=== PATIENT | male | born 1975 | race Hispanic/Latino ===

== ENCOUNTER 2017-06-19 19:23 | Observation (INO) | payer SELFPAY ==
[~2017-06-19] VITALS: Ht 167.6 cm; Wt 99.0 kg
[2017-06-19 19:40] LABS: BASOPHILS % (AUTO) 0.7 % (0.0-5.0); EOSINOPHILS % (AUTO) 2.7 % (0.0-8.0); HEMATOCRIT 39.6 % (42-54); LYMPHOCYTES % (AUTO) 41.4 % (21.0-51.0); MEAN CORPUSCULAR HEMOGLOBIN 29.7 pg (27.0-33.0); MEAN CORPUSCULAR HGB CONC 33.9 g/dL (32.0-36.0); MEAN CORPUSCULAR VOLUME 87.7 fL (79-99); MONOCYTES % (AUTO) 8.4 % (3.0-13.0); NEUTROPHILS % (AUTO) 46.8 % (40.0-77.0); PLATELET COUNT (AUTO) 250 K/uL (130-400); RED BLOOD CELL COUNT(AUTO) 4.51 MIL/uL (4.50-6.20); RED CELL DISTRIBUTION WIDTH 13.6 % (11.0-15.5)
[2017-06-19 19:54] LABS: INR 0.98 (0.85-1.15); PARTIAL THROMBOPLASTIN TIME 23.4 SEC (26.3-35.5); PROTHROMBIN TIME 10.3 SEC (9.6-11.6)
[2017-06-19 19:57] LABS: POTASSIUM 4.1 mmol/L (3.5-5.1)
[2017-06-19 20:21] LABS: ALBUMIN 3.5 g/dL (3.5-5.0); BILIRUBIN,TOTAL 0.3 mg/dL (0.2-1.0); CREATINE KINASE MB 2.7 ng/mL (0.5-3.6); TOTAL PROTEIN, SERUM 6.7 g/dL (6.0-8.3)
[2017-06-19] MEDS ORDERED: NITROGLYCERIN 1GM/1 INCH PACKET TD ONE (20:41)
[2017-06-19 23:09] LABS: AMPHET/METH SCREEN,URINE NEGATIVE (NEGATIVE); BARBITURATE SCREEN, URINE NEGATIVE (NEGATIVE); BENZODIAZEPINES SCREEN,URINE NEGATIVE (NEGATIVE); CANNABINOID SCREEN,URINE NEGATIVE (NEGATIVE); COCAINE SCREEN,URINE POSITIVE (NEGATIVE); OPIATE SCREEN,URINE POSITIVE (NEGATIVE); PHENCYCLIDINE SCREEN,URINE NEGATIVE (NEGATIVE)
[2017-06-20] MEDS ORDERED: ACETAMINOPHEN 325 MG TAB PO PRN (03:15)
[2017-06-20] MEDS ORDERED: ONDANSETRON HCL 4 MG/2 ML VIAL IV PRN (03:15)
[2017-06-20] MEDS ORDERED: HYDRALAZINE HCL 20 MG/ML VIAL IV PRN (03:15)
[2017-06-20] MEDS ORDERED: NITROGLYCERIN 0.4 MG SL TAB SL PRN (03:30)
[2017-06-20 04:10] VITALS: BP 114/77
[2017-06-20 04:39] LABS: CREATINE KINASE MB 2.2 ng/mL (0.5-3.6); CREATINE KINASE, TOTAL 182 U/L (21-232); MYOGLOBIN 34 ng/mL (10-92); TROPONIN I < 0.04 ng/mL (0.00-0.06)
[2017-06-20 07:37] VITALS: BP 134/92
[2017-06-20] MEDS ORDERED: METOPROLOL TARTRATE 25 MG TAB PO SCH (09:00)
[2017-06-20] MEDS ORDERED: ASPIRIN 325 MG TABLET PO SCH (09:00)
[2017-06-20] MEDS ORDERED: FAMOTIDINE 20MG TAB 20 MG TAB PO SCH (09:00)
[2017-06-20] MEDS ORDERED: ENOXAPARIN SODIUM 40 MG/0.4 ML SYRINGE SQ SCH (09:00)
[2017-06-20 10:48] LABS: CHOLESTEROL 135 mg/dL (<200); HDL CHOLESTEROL 44 mg/dL (29-71); LDL DIRECT 75 mg/dL (0-99); TRIGLYCERIDES 132 mg/dL (30-200)
[2017-06-20 11:11] VITALS: BP 126/85
[2017-06-20 16:00] VITALS: BP 140/52
== END 2017-06-20 19:41 | disposition home or self-care (01) ==
LOC: EDH 19:23 → EEVIPCON 19:24 → EDHIP 19:24 → 2DH 06-20 04:09
PROVIDERS: ADMIT Family Medicine; ATTEND Family Medicine
DX: R07.89 Other chest pain (principal); I10 Essential (primary) hypertension; Z82.49 Family history of ischemic heart disease and other diseases of the circulatory system; F17.210 Nicotine dependence, cigarettes, uncomplicated; F14.10 Cocaine abuse, uncomplicated
CPT/HCPCS: 36415 ×2; 71045; 80053; 80061; 80305; 82550 ×2; 82553 ×2; 83036; 83874 ×2; 84484 ×3; 85025; 85610; 85730; 93005 ×3; 93015; 96372; 99285; G0378 ×24; J1650

== ENCOUNTER 2018-11-13 05:20 | Emergency (ER) | payer MEDICAID | END 2018-11-13 06:05 | disposition home or self-care (01) | LOC: EDH 05:20 | DX: L03.116 Cellulitis of left lower limb (principal); I10 Essential (primary) hypertension; E11.9 Type 2 diabetes mellitus without complications; F98.8 Other specified behavioral and emotional disorders with onset usually occurring in childhood and adolescence; Z72.0 Tobacco use | CPT/HCPCS: 93005 ==

== ENCOUNTER 2019-09-30 17:53 | Emergency (ER) | payer MEDICAID ==
[2019-09-30] MEDS ORDERED: ONDANSETRON HCL 4 MG/2 ML VIAL ONE (18:42)
[2019-09-30] MEDS ORDERED: MORPHINE SULFATE 4 MG/1ML SYG ONE (18:43)
[2019-09-30] MEDS ORDERED: LIDOCAINE 5% TOPICAL PATCH TP ONE (18:43)
== END 2019-09-30 21:00 | disposition home or self-care (01) ==
LOC: EDH 17:53
DX: R10.10 Upper abdominal pain, unspecified (principal); E11.9 Type 2 diabetes mellitus without complications; I10 Essential (primary) hypertension; Z72.0 Tobacco use
CPT/HCPCS: 36415; 71046; 74176; 80053; 81001; 85025; 96374; 96375; 99285; J2270; J2405

== ENCOUNTER 2024-10-24 19:47 | Emergency (ER) | payer MEDICAID ==
[~2024-10-24] VITALS: Ht 172.7 cm; Wt 86.2 kg
--- NOTE | 2024-10-24 20:04 | NUR ---
PATIENT RESTLESS, PRESSURED SPEECH, ARMS AND LEGS WITH CONSTANT INVOLUNTARY MOVEMENTS. STATES HX OF SEVERE ANXIETY, PTSD.
[2024-10-24 20:30] LABS: BASOPHILS # (AUTO) 0.03 K/uL (0.00-0.20); BASOPHILS % (AUTO) 0.2 % (0.0-5.0); EOSINOPHILS # (AUTO) 0.11 K/uL (0.00-0.70); EOSINOPHILS % (AUTO) 0.9 % (0.0-8.0); HEMATOCRIT 34.9 % (42-54); IMMATURE GRANULOCYTE ABSOLUTE 0.06 K/uL (0-1); LYMPHOCYTES # (AUTO) 1.8 K/uL (1.0-4.8); LYMPHOCYTES % (AUTO) 14.9 % (21.0-51.0); MEAN CORPUSCULAR HEMOGLOBIN 29.9 pg (27.0-33.0); MEAN CORPUSCULAR VOLUME 90.6 fL (79-99); MONOCYTES # (AUTO) 1.3 K/uL (0.1-1.0); MONOCYTES % (AUTO) 10.4 % (3.0-13.0); NEUTROPHILS # (AUTO) 9.1 K/uL (1.8-7.7); NEUTROPHILS % (AUTO) 73.1 % (40.0-77.0); PLATELET COUNT (AUTO) 216 K/uL (130-400); RED BLOOD CELL COUNT(AUTO) 3.85 MIL/uL (4.50-6.20); WHITE BLOOD COUNT (AUTO) 12.4 K/uL (4.8-10.8)
[2024-10-24 20:39] LABS: POTASSIUM 3.8 mmol/L (3.5-5.1)
--- NOTE | 2024-10-24 21:00 | NUR ---
PATIENT GIVEN URINAL FOR URINE SAMPLE, PATIENT STATES WILL PROVIDE SOON POSSIBLE.
[2024-10-24] MEDS: LIDOCAINE HCL 1% 20 ML VIAL INJ ONE (21:48)
[2024-10-24] MEDS ORDERED: IBUP-2070 PO (21:48)
[2024-10-24] MEDS ORDERED: CLIN-141 PO (21:48)
--- NOTE | 2024-10-24 21:50 | ERN ---
ED Note History of Present Illness Stated Complaint: INSECT BITE Chief Complaint: Insect Bite Time Seen by MD: 19:51 Time Seen by Midlevel: 19:51 Dictation: The Please a 49-year-old male with a history of diabetes, anxiety, PTSD, depression who presents to the emergency department with complaints of right upper thigh abscess onset three days ago. Patient is not aware if something bit him. Reports fevers. Allergies: Coded Allergies: No Known Drug Allergies (Unverified Allergy, Unknown, 06/20/17) Home Meds Active Scripts Ibuprofen (Ibuprofen) 600 Mg Tablet, 600 MG PO Q6H PRN for PAIN, #15 TAB Prov:SARAH DUBOIS COST REPORT CLERK 10/24/24 Clindamycin HCl (Clindamycin HCl) 300 Mg Capsule, 1 CAP PO QID for 10 Days, #40 CAP 0 Refills Prov:SARAH DUBOIS COST REPORT CLERK 10/24/24 Past Medical History Past Medical History: Anxiety, Bipolar, Depression, Other Additional Past Medical Hx: PTSD Surgical History: None RN Note Reviewed/Agreed w/PFSH: Yes Review of System Dictation Constitutional: Negative for fever,chills, and weight loss Eyes: Negative for injury, pain,redness, and discharge ENT: Negative for injury,pain or swelling Cardiovascular: Negative for chest pain, palpitations, and edema Respiratory: Negative for shortness of breath, cough, and wheezing, Abdomen/GI: Negative for abdominal pain, nausea, vomiting, diarrhea, and consti pation Back: Negative for injury and pain : Negative for injury, bleeding and discharge MS/Extremity: Negative for injury and deformity Skin: Negative for rash, and discoloration positive for abscess Neuro: Negative for headache, weakness, numbness, tingling, and seizure Psych: Negative for suicide ideation, homicidal ideation, and hallucinations Initial Vital Sign VS Vital Signs Date Time Temp Pulse Resp B/P (MAP) Pulse Ox O2 Delivery O2 Flow Rate FiO2 10/24/24 19:48 98.6 101 20 133/59 98 Room Air 10/24/24 21:58 0 21 Physical Exam Dictation Vital Signs reviewed General Appearance: Alert, oriented x 3, no acute distress, well developed, nourished. Head and Face: non-traumatic. Eyes: PERRL, pink conjunctivas, eyelid no trauma, anterior chamber with arcus senilis. Ears: Pinnas intact and no signs of trauma or erythema ear canals clear and no discharge TM no erythema Nose: No discharge, no bleeding. Oropharynx: Mouth normal, tongue pink. pharynx clear,no erythema, tonsils no exudates, no abscesses noted, mucous membrane moist Neck: Supple, non-tender, no thyromegaly, no masses, no JVD, no bruits Breast:Deferred Chest:No tenderness, no crepitus, no paradoxical movement, no retractions Lungs:Clear, well-ventilated, symmetric, no rales, no wheezing, no rhonchi, no stridor, good breath sounds bilaterally Heart: Regular rate, regular rhythm, no murmur, no gallops Vascular: no peripheral edema, Abdomen: Soft, positive bowel sounds, nondistended, no guarding, nontender, no rebound, no masses no hepatomegaly, no splenomegaly, no Hodge's sign, no hernias. Rectal: Deferred Genital: Deferred Neurological: Normal speech, motor function intact, sensory function intact Musculoskeletal: Neck nontender, full range of motion, back nontender, full range of motion, Extremities: nontender, full range of motion Skin: Color pink, dry, no turgor, no rash, no lacerations, no abrasions, no contusions. Abscess noted to right posterior thigh, erythema, mild purulent drainage Lymphatic: Deferred Results (Laboratory/Radiology) Laboratory/Radiology Laboratory Tests Test 10/24/24 20:25 White Blood Count 12.4 K/uL (4.8-10.8) H Red Blood Count 3.85 MIL/uL (4.50-6.20) L Hemoglobin 11.5 g/dL (14.0-18.0) L Hematocrit 34.9 % (42-54) L Mean Corpuscular Volume 90.6 fL (79-99) Mean Corpuscular Hemoglobin 29.9 pg (27.0-33.0) Mean Corpuscular Hemoglobin Concent 33.0 g/dL (32.0-36.0) Red Cell Distribution Width 13.0 % (11.0-15.5) Platelet Count 216 K/uL (130-400) Mean Platelet Volume 10.4 fL (7.5-10.5) Immature Granulocyte % (Auto) 0.5 % (0-1) Neutrophils (%) (Auto) 73.1 % (40.0-77.0) Lymphocytes (%) (Auto) 14.9 % (21.0-51.0) L Monocytes (%) (Auto) 10.4 % (3.0-13.0) Eosinophils (%) (Auto) 0.9 % (0.0-8.0) Basophils (%) (Auto) 0.2 % (0.0-5.0) Neutrophils # (Auto) 9.1 K/uL (1.8-7.7) H Lymphocytes # (Auto) 1.8 K/uL (1.0-4.8) Monocytes # (Auto) 1.3 K/uL (0.1-1.0) H Eosinophils # (Auto) 0.11 K/uL (0.00-0.70) Basophils # (Auto) 0.03 K/uL (0.00-0.20) Absolute Immature Granulocyte (auto 0.06 K/uL (0-1) Nucleated Red Blood Cells 0.0 % (0.0-0.19) Sodium Level 139 mmol/L (136-145) Potassium Level 3.8 mmol/L (3.5-5.1) Chloride Level 102 mmol/L (101-111) Carbon Dioxide Level 31 mmol/L (21-32) Blood Urea Nitrogen 16 mg/dL (7-18) Creatinine 1.0 mg/dL (0.5-1.3) Glomerular Filtration Rate Calc 93 mL/min (>90) Random Glucose 142 mg/dL (70-105) H Total Calcium 8.3 mg/dL (8.5-10.1) L Labs Reviewed?: Yes ED Course ED Course Orders Procedure Category Date Status Time Cbc With Differential LAB 10/24/24 Complete 20:05 Basic Metabolic Panel LAB 10/24/24 Complete 20:05 Us Soft Tissue Lower US 10/24/24 Taken Extremity 20:05 Drug Screen Urine LAB 10/24/24 Logged 20:31 Lidocaine Hcl 1% 20ml PHA 10/24/24 Complete Vial (Lidocaine Hc 21:30 Clindamycin 150mg Cap PHA 10/24/24 Complete (Cleocin 150mg Cap 21:30 Acetaminophen 500mg PHA 10/24/24 Complete Tab (Tylenol 500mg T 21:30 I&D Set Up Bedside CPOE 10/24/24 Transmitted (Er) 21:09 Current Medications Medications (Trade) Dose Ordered Sig/Ernst Route PRN Reason Start Time Stop Time Status Last Admin Dose Admin Acetaminophen (TYLenol 500MG TAB) 1,000 mg ONCE ONCE PO 10/24/24 21:30 10/24/24 21:31 DC 10/24/24 21:56 Clindamycin HCl (Cleocin 150mg Cap) 300 mg ONCE ONCE PO 10/24/24 21:30 10/24/24 21:31 DC 10/24/24 21:56 Lidocaine HCl (Lidocaine HCl 1% 20ml Vial) 10 ml ONCE ONCE INJ 10/24/24 21:30 10/24/24 21:31 DC Vital Signs Date Time Temp Pulse Resp B/P (MAP) Pulse Ox O2 Delivery O2 Flow Rate FiO2 10/24/24 21:58 98.4 90 18 135/79 98 Room Air* 0 21 10/24/24 19:48 98.6 101 20 133/59 98 Room Air Medical Decision Making MDM The Please a 49-year-old male with a history of diabetes, anxiety, PTSD, depression who presents to the emergency department with complaints of right upper thigh abscess onset three days ago. Patient is not aware if something bit him. Reports fevers. CBC showed mild leukocytosis, mild anemia, chemistry showed no electrolyte imbalance, glucose of 142. Ultrasound revealed a right posterior abscess of 2.4 x 0.6 x 1.47 which was drained. Patient tolerated procedure well. Patient appears anxious but answers questions correctly, is oriented. Verbalized understanding instructions. Patient instructed to return in 48 hours to have packing removed. Patient will be treated with clindamycin as outpatient. Differential diagnosis: Abscess, cellulitis, sepsis Need for hospitalization: Patient does not meet criteria for hospitalization. There are no social concerns with this patient. Procedure Blade Size: 11 I & D Procedure: no betadine prepno sterile drapes appliedno sterile dressing appliedno gauze wick placed Progress Verbal consent for the procedure was obtained. A takeout protocol was performed prior to initiating the procedure. The area was prepared and draped in the usual, sterile manner. The site was anesthetized with 1% lidocaine without epinephrine. 2 linear incision along the local skin lines was made about 2in and the purulent material expressed. The abscess was explored thoroughly and sequestered pockets were opened. Bleeding was minimal. Packing: plain 1/2 inch packing. The patient tolerated the procedure well without complications. Standard post- procedure care is explained and return precautions are given. DX & DISP Disposition: Discharge Departure Impression: Primary Impression: Abscess of right lower leg Condition: Stable Scripts Ibuprofen (Ibuprofen) 600 Mg Tablet 600 MG PO Q6H PRN for PAIN, #15 TAB Prov: SARAH DUBOIS PATRICIA 10/24/24 Clindamycin HCl (Clindamycin HCl) 300 Mg Capsule 1 CAP PO QID for 10 Days, #40 CAP 0 Refills Prov: SHERLYSARAH GOMEZ 10/24/24 Additional Instructions: Please take your medications as prescribed and until finished. You will need to return in 48 to have wound packing change. If anything worsens please return to ER. FOLLOW-UP WITH PRIMARY CARE PROVIDER IN 1 TO 2 DAYS. TAKE MEDICATIONS DIRECTED HERE IN THE EMERGENCY ROOM. OKAY TO CONTINUE HOME MEDICATIONS UNLESS OTHERWISE DISCUSSED DURING YOUR VISIT IN THE EMERGENCY ROOM TODAY. RETURN TO YOUR NEAREST EMERGENCY ROOM IF SYMPTOMS WORSEN OR IF THERE IS NO IMPROVEMENT. CALL 911 IF YOU NEED IMMEDIATE ASSISTANCE. TAKE TYLENOL [id number] NEEDED AND IF NO CONTRAINDICATIONS ARE PRESENT. INCREASE ORAL HYDRATION. A WOUND CULTURE OR URINE CULTURE WAS ORDERED HERE IN THE EMERGENCY ROOM DEPARTMENT PLEASE FOLLOW-UP WITH PRIMARY CARE PROVIDER AND ADVISE THEM TO GET REPEAT PORTS FROM OUR FACILITY. IF YOU HAD ANY MATTY WRAP/SPLINTS THAT WERE APPLIED HERE, PLEASE DO NOT REMOVE THEM UNTIL YOU SEE YOUR PRIMARY CARE OR SPECIALTY. Referrals: JENNIFER HENRIQUEZ MD (PCP) Time of Disposition: 21:48 I have examined patient, & reviewed all documents, & agreed W/ the Diagnosis, and Plan I performed a substantive portion of the visit. I have reviewed and personally made and approve the management plan that is documented in the notes by myself with FAHAD/resident. I acknowledged full responsibility for the patient's management plan. SARAH DUBOIS Oct 24, 2024 21:50 BERNIE RIVERA DO Oct 25, 2024 04:00
[2024-10-24] MEDS: CLINDAMYCIN 150 MG CAP PO ONE (21:56)
[2024-10-24] MEDS: acetaMINOPHEN 500 MG TABLET PO ONE (21:56)
[2024-10-24 21:58] VITALS: BP 135/79; PULSE 90; RESP 18; TEMP 98.4; O2SAT 98
--- NOTE | 2024-10-25 10:20 | HMCIMG ---
US SOFT TISSUE LOWER EXTREMITY REASON: Abscess. COMPARISON: None TECHNIQUE: Right posterior thigh ultrasound study was performed. FINDINGS: At the region of interest, there is possible subcutaneous abscess measuring 2.4 x 0.6 x 1.4 cm. IMPRESSION: Possible subcutaneous abscess measuring 2.4 x 2.6 x 1.4 cm.
== END 2024-10-24 21:59 | disposition home or self-care (01) ==
LOC: EDH 19:47
DX: L02.415 Cutaneous abscess of right lower limb (principal); F31.9 Bipolar disorder, unspecified; F41.9 Anxiety disorder, unspecified; Z98.890 Other specified postprocedural states
CPT/HCPCS: 10060; 36415; 76882; 80048; 85025; 99284